=== PATIENT | male | born 1955 | race Two or more races ===

== ENCOUNTER 2022-09-30 08:25 | Outpatient (REF) | payer MEDICARE, SELFPAY ==
--- NOTE | 2022-09-30 | EMG_ITS ---
Please see scanned EMG / Nerve Conduction Report. MTDD
== END 2022-09-30 08:26 | disposition home or self-care (01) ==
LOC: HO.NEURO 08:25
PROVIDERS: PCP Internal Medicine; Visit Provider Physician Assistant
DX: R20.2 Paresthesia of skin (principal)
CPT/HCPCS: 95860; 95885; 95907; 95913